=== PATIENT | male | born 1990 | race Caucasian/White ===

== ENCOUNTER 2019-02-12 15:34 | Outpatient (CLI) | payer MEDICAID ==
--- NOTE | 2019-02-13 09:13 | Ultrasound Report ---
Reason: TESTICULAR PAIN, RIGHT Procedure Date: 02/12/2019 Accession Number: [id number] / [id number] Procedure: US - Testicle CPT Code: FULL RESULT: EXAM: SCROTAL ULTRASOUND: INGUINAL ULTRASOUND: EXAM DATE: 02/12/2019 04:50 PM. CLINICAL HISTORY: Testicular pain, right. COMPARISON: None. TECHNIQUE: 1. Testicular Ultrasound: Real-time scanning was performed with static images obtained. Color-flow images were utilized. 2. Inguinal Ultrasound: Targeted bilateral inguinal ultrasound with and without Valsalva performed. Computer [employer]ware [employer] static images acquired. FINDINGS: Right: Testis: 4.7 x 2.4 x 3.0 cm. Normal size and echotexture. No mass, calcification, or abnormal blood flow. Epididymis: 1.4 x 0.9 x 0.7 cm. Normal size and echotexture. No mass or abnormal blood flow. Hydrocele: None. Varicocele: None. Left: Testis: 4.3 x 2.4 x 3.0 cm. Normal size and echotexture. No mass, calcification, or abnormal blood flow. Epididymis: 0.9 x 0.7 x 0.7 cm. Normal size and echotexture. No mass or abnormal blood flow. Small simple epididymal head cysts are noted measuring 0.4 cm and 0.5 cm respectively. Hydrocele: None. Varicocele: None. Additional Comments: Targeted evaluation of both inguinal canals with and without Valsalva was performed. No hernia identified. No pathologic adenopathy, collection or mass. IMPRESSION: 1. No testicular mass or torsion. 2. Both epididymides are normal. Simple 0.4 cm 0.5 cm left epididymal cyst. 3. No varicoceles, hydroceles or hernias. [facility]
== END 2019-02-12 15:35 | disposition home or self-care (01) ==
LOC: DI 15:34
PROVIDERS: ATTEND Physician Assistant Medical
DX: N50.3 Cyst of epididymis (principal); N50.811 Right testicular pain
CPT/HCPCS: 76870

== ENCOUNTER 2021-01-15 07:00 | Outpatient (CLI) | payer MEDICAID | END 2021-01-15 23:59 | disposition home or self-care (01) | LOC: LAB.R 07:00 | PROVIDERS: ATTEND Family Medicine | DX: J02.9 Acute pharyngitis, unspecified (principal) | CPT/HCPCS: 87070 ==